=== PATIENT | female | born 1960 | race Caucasian/White ===

== ENCOUNTER 2017-02-09 06:52 | Emergency (ER) | payer BC, OTHER ==
[2017-02-09] MEDS ORDERED: OXYCODONE-ACETAMINOPHEN 5-325 MG TABLET ONE (12:13)
[2017-02-09] MEDS ORDERED: CEFTRIAXONE RTU 1 GM/D5W 50 ML IV ONE (12:13)
[2017-02-09] MEDS ORDERED: MORPHINE SULFATE 10 MG/ML INJ ONE (12:13)
[2017-02-10 09:19] LABS: ABSOLUTE BASOPHILS # (AUTO) 0.1 10^3/uL (0.0-0.2); ABSOLUTE EOSINOPHILS # (AUTO) 0.1 10^3/uL (0.0-0.6); ABSOLUTE LYMPHOCYTES (AUTO) 2.7 10^3/uL (0.5-4.7); ABSOLUTE MONOCYTES (AUTO) 0.9 10^3/uL (0.1-1.4); ABSOLUTE NEUT (AUTO) 5.4 10^3/uL (1.7-8.2); BASOPHILS % (AUTO) 0.7 % (0-2); EOSINOPHILS % (AUTO) 1.4 % (0-6); HEMATOCRIT 49.2 % (36.0-47.0); HEMOGLOBIN 15.9 g/dL (12.0-15.5); HGB HCT DIFFERENCE -1.5; LYMPHOCYTES % (AUTO) 29.6 % (13-45); MEAN CORPUSCULAR HEMOGLOBIN 27.5 pg (27.0-33.4); MEAN CORPUSCULAR HGB CONC 32.4 g/dL (32.0-36.0); MEAN CORPUSCULAR VOLUME 85 fl (80-97); MONOCYTES % (AUTO) 9.4 % (3-13); RED CELL DISTRIBUTION WIDTH 15.5 % (11.5-14.0); SEGMENTED NEUTROPHILS % (AUTO) 58.9 % (42-78); WHITE BLOOD COUNT 9.2 10^3/uL (4.0-10.5)
[2017-02-10 14:02] LABS: APPEARANCE,URINE CLOUDY; BILIRUBIN,URINE NEGATIVE (NEGATIVE); GLUCOSE, URINE NEGATIVE (NEGATIVE); KETONES,URINE NEGATIVE (NEGATIVE); LEUKOCYTE ESTERASE,URINE SMALL (NEGATIVE); NITRITE,URINE NEGATIVE (NEGATIVE); PROTEIN,URINE 30 mg/dL (NEGATIVE); URINE SPECIFIC GRAVITY 1.014; UROBILINOGEN,URINE NEGATIVE mg/dL (<2.0)
[2017-02-10 15:38] LABS: CALCIUM 11.7 mg/dL (8.4-10.2); GLUCOSE 107 mg/dL (75-110)
[2017-02-10 15:39] LABS: ANION GAP 14 (5-19); BLOOD UREA NITROGEN 20 mg/dL (7-20); CARBON DIOXIDE 25 mmol/L (22-30); CHLORIDE 104 mmol/L (98-107); POTASSIUM 4.2 mmol/L (3.6-5.0); SODIUM 143.2 mmol/L (137-145)
--- NOTE | 2017-05-02 11:18 | ER Document Report ---
Doctor's Note Notes: 05/02/17 11:17 Addendum to the clinical impression for the visit on 02/10/2017 dictated by myself. Right-sided kidney stone is the clinical impression.
== END 2017-02-09 15:48 | disposition home or self-care (01) ==
LOC: ER 06:52
DX: N13.2 Hydronephrosis with renal and ureteral calculous obstruction (principal); K46.9 Unspecified abdominal hernia without obstruction or gangrene; M62.830 Muscle spasm of back; I10 Essential (primary) hypertension; Z87.442 Personal history of urinary calculi; Z90.49 Acquired absence of other specified parts of digestive tract
CPT/HCPCS: 99284; 96375; 96365; 36415; 87086; 85025; 80048; 81001; 74150; J2270; J0696; 80053

== ENCOUNTER 2017-02-15 11:03 | Day surgery (SDC) | payer BC ==
[2017-02-15] MEDS ORDERED: CEFTRIAXONE 1 GM/D5W RTU 1 GM/50 ML RTUPB IV ONE (11:14)
[2017-02-15] MEDS ORDERED: PROMETHAZINE HCL INJ 25 MG/1 ML VIAL IV PRN ×2 (12:56)
[2017-02-15] MEDS ORDERED: FENTANYL CITRATE INJ/PF 100 MCG/2 ML AMPUL IV PRN ×3 (12:56)
[2017-02-15] MEDS ORDERED: MORPHINE SULFATE 10 MG/ML INJ IV PRN (12:56)
[2017-02-15] MEDS ORDERED: DIPHENHYDRAMINE HCL 50 MG/ML VIAL IV PRN (12:56)
[2017-02-15] MEDS ORDERED: MEPERIDINE HCL/PF INJ 25 MG/1 ML DISP.SYRIN IV PRN (12:56)
[2017-02-15] MEDS ORDERED: FENTANYL CITRATE INJ/PF 250 MCG/5 ML AMPULE ONE (13:11)
[2017-02-15] MEDS ORDERED: PROPOFOL INJ 200 MG/20 ML VIAL IV ONE (13:11)
[2017-02-15] MEDS ORDERED: ONDANSETRON HCL INJ/PF 4 MG/2 ML SDV ONE ×2 (13:11→16:44)
[2017-02-15] MEDS ORDERED: MIDAZOLAM 2 MG/2 ML INJ ONE (13:11)
[2017-02-15] MEDS ORDERED: DEXAMETHASONE SOD PHOSPHATE INJ 4 MG/1 ML VIAL ONE (13:11)
[2017-02-15] MEDS ORDERED: MORPHINE SULFATE 10 MG/ML INJ ONE (13:12)
[2017-02-15] MEDS ORDERED: IBUPROFEN INJ 800 MG/8 ML VIAL IV ONE (13:12)
[2017-02-15] MEDS ORDERED: SUCCINYLCHOLINE CHLORIDE INJ 200 MG/10 ML VIAL ONE (13:28)
--- NOTE | 2017-02-15 15:27 | Operative Report ---
Operative Report DATE OF SURGERY: 02/15/17 PREOPERATIVE DIAGNOSIS: Left ureteral stone, Right renal stones POSTOPERATIVE DIAGNOSIS: same OPERATION: cystoscopy, bilateral RGP's, left ureteroscopy with basket extraction of stone, right ureteroscopy with holmium laser lithotripsy and basket extraction of stones, bilateral ureteral stent placement SURGEON: JOSE HURLEY 1ST EMERGENCY DEPARTMENT: none ANESTHESIA: GA TISSUE REMOVED OR ALTERED: left ureteral stones for analysis, right renal stone fragments for analysis COMPLICATIONS: none
--- NOTE | 2017-02-15 15:43 | RADIOLOGY REPORT (SQ) ---
EXAM DESCRIPTION: PYELOGRAM RETROGRADE COMPLETED DATE/TIME: 02/15/2017 3:25 pm REASON FOR STUDY: BILAT PYELOGRAM RETROGRADE, LITHOTRIPSY IN CYSTO N20.0 CALCULUS OF KIDNEY COMPARISON: None. FLUOROSCOPY TIME: 1.16 minute 24 images saved to PACS. TECHNIQUE: Intra-operative images acquired during surgical procedure to evaluate progress. NUMBER OF IMAGES: 24 images LIMITATIONS: None. FINDINGS: Fluoroscopic images were obtained during performance of bilateral retrograde pyelograms. The final images demonstrate bilateral double-J stents in position. IMPRESSION: IMAGE(S) OBTAINED DURING PROCEDURE. COMMENT: Quality ID [id number]: Final reports for procedures using fluoroscopy that document radiation exp osure indices, or exposure time and number of fluorographic images (if radiation exposure indices are not available) Please consult full operative report of the attending physician for description of the procedure. TECHNICAL DOCUMENTATION: JOB ID: [id number] [employer]- All Rights Reserved
[2017-02-15] MEDS ORDERED: OXYCODONE-ACETAMINOPHEN 5-325 MG TABLET ONE (16:17)
[2017-02-15 17:46] VITALS: BP 166/104
--- NOTE | 2017-02-15 20:58 | OPERATIVE REPORT E ---
Operative Report NAME: TORIN DUVALL : 1960 AGE: 56Y DATE OF SURGERY: 02/15/2017 ROOM: PREOPERATIVE DIAGNOSIS: Left distal ureteral stone, right renal stones. POSTOPERATIVE DIAGNOSIS: Left distal ureteral stone, right renal stones. OPERATION: Cystourethroscopy, bilateral retrograde pyelogram, left ureteroscopy with basket extraction of stone fragments, right ureteroscopy with holmium laser lithotripsy and basket extraction of stone fragments, bilateral ureteral stent placement. SURGEON: JOSE HURLEY M.D. [employer] HE[employer] FITTER MACHINE: None. ANESTHESIA: General. COMPLICATIONS: None. SPECIMENS: Left ureteral stone fragments, right renal stone fragments. ESTIMATED BLOOD LOSS: Less than 5 mL. DRAINS: Left 7 x 26 double-J ureteral stent, right 6 x 26 double-J ureteral stent. INDICATIONS: The patient is a very pleasant 56-year-old female who recently presented with right flank pain. A CT scan showed a 1.4 cm stone in the right renal pelvis. There was mild associated hydronephrosis noted as well. There was a smaller nonobstructing stone noted within the right kidney as well. CT scan also showed an approximately 4 mm left distal ureteral stone without any significant hydronephrosis. I met with her in the clinic and we discussed the options for management of her stones. We decided to proceed with ureteroscopic management of her stone burden. We discussed the risks and benefits of the same. We discussed the risks of bleeding, infection, damage to structures in which we are working such as the urethra, the bladder, the bilateral ureters and bilateral kidneys, damage to adjacent structures, the possible need for multiple procedures to clear her stone burden, and the possible need for subsequent treatments or procedures based on the above-noted complications. The patient acknowledged the above and wished to proceed. Informed consent was obtained. PROCEDURE: After informed consent was obtained, the patient was taken back to the operating room and placed in supine position on the operating room table. General anesthesia was then induced. She was then repositioned in the dorsal lithotomy position, and prepped and draped in standard sterile fashion. Perioperative antibiotics were administered for prophylaxis, and an active timeout was performed. Next, a 23 [place] rigid cystoscope was inserted via the urethral meatus and advanced under direct visualization into the bladder. Once in the bladder, panendoscopy of the bladder was performed with a 70 degree and then 30 degree lens. The urethral mucosa was unremarkable. Within the bladder, there are no suspicious lesions, masses, or foreign bodies identified. I next turned my attention to the left ureteral orifice. The left ureteral orifice was cannulated with a sensor wire, which was advanced into the upper collecting tract under fluoroscopic guidance. The bladder was then emptied and the cystoscope was removed from over the wire. Over the wire, a 10 [place]arian dual lumen catheter was advanced into the distal ureter under fluoroscopic guidance. Mild resistance was met within the distal ureter and further attempts at advancement were halted. A left retrograde pyelogram was then performed. Interpretation of left retrograde pyelogram: With the catheter in the left distal ureter, contrast was gently instilled. The ureter filled well, as did the upper collecting tract. The ureter was at a normal caliber without any suspicious filling defects. The upper collecting tract was also found to be nondilated without any suspicious filling defects noted. After the left retrograde pyelogram was complete, a 2nd sensor wire was placed through the dual lumen catheter into the upper collecting tract under fluoroscopic guidance and the dual lumen catheter was removed from over the wires. Next, a semi-rigid ureteroscope was inserted via the urethral meatus and advanced under direct visualization into the bladder and up the left ureteral orifice. Within the left distal ureter, there were approximately 3 stone fragments which appeared to be mildly impacted noted. A 1.90 tip nitinol basket was used to extract these stone fragments. The fragments were passed off to the back table to be sent to Pathology for specimen analysis. After all the stone fragments were extracted, the ureteroscope was readvanced into the bladder and through the left ureteral orifice under direct visualization. I advanced the scope under direct visualization up into the left renal pelvis. No other stones were identified. The scope was then retracted under direct visualization, inspecting the ureter along its entirety. Again, no stones or suspicious lesions were noted. After the semi-rigid ureteroscope was removed, so was one of the sensor wires. Over the remaining sensor wire, the cystoscope was back loaded and advanced under direct visualization into the bladder. Over the wire, a 7 x 26 left double-J ureteral stent was advanced under cystoscopic visualization and fluoroscopic guidance. Once the stent was in good position, the wire was removed. A good curl was noted within the upper collecting tract on fluoroscopy. A good curl was noted within the bladder on cystoscopy. I then turned my attention to the right ureteral orifice, which was cannulated with a sensor wire. The sensor wire was then advanced into the upper collecting tract under fluoroscopic guidance. The bladder was emptied and the cystoscope was removed from over the wire. Over the wire, a 10 [place] dual lumen catheter was advanced under fluoroscopic guidance to the level of the right ureteropelvic junction. A right retrograde pyelogram was then performed. Interpretation of right retrograde pyelogram: With a catheter at the level of the right ureteropelvic junction, contrast was gently instilled. There was a subtle filling defect noted within the renal pelvis which was consistent with the stone noted on her CT scan. The upper tract calyces were mildly dilated. There were no suspicious filling defects identified. After the retrograde pyelogram was complete, a 2nd sensor wire was placed through the dual lumen catheter into the upper collecting tract under fluoroscopic guidance, and the dual lumen catheter was removed from over the wires. Over one of the wires, a 35 cm ureteral access sheath was advanced under fluoroscopic guidance to the level of the right upper ureter, just distal to the ureteropelvic junction. The wire over which it was passed and the obturator were then removed. Through the ureteral access sheath, a flexible ureteroscope was passed under direct visualization into the renal pelvis. A large stone was immediately identified within the renal pelvis. I inspected the calyces of the upper mid and lower poles. Within one of the other upper pole calyces, a moderate sized stone was identified. There was a tiny stone noted within one of the lower pole calyces. The holmium laser, on stone dusting settings, was used to fragment the large renal pelvis stone into multiple innumerable tiny pieces. A large portion of the stone was dusted as well. After all the fragments were broken down as small as possible, I turned my attention to the moderate sized stone within the upper pole calyx. Again, using the stone dusting settings, I fragmented the stone into as many smaller pieces as possible. Once it was fragmented into as many small pieces as possible, the laser was placed on standby and removed from the ureteroscope. The 0 tip nitinol basket was used to extract the smaller lower pole stone. There were a few stone fragments within the renal pelvis. These were also extracted. The lower pole stone and the stone fragments were collected and passed off to the back table to be sent to Pathology for analysis. At this point, visualization was becoming limited. I felt it prudent to terminate the procedure. The ureteroscope and ureteral access sheath were retracted in tandem, inspecting the right ureter along its entirety. There were no stones noted within the ureter. Of note, there were no suspicious lesions of the upper collecting tract of the right upper collecting tract or right ureter noted, either. Once the ureteroscope and ureteral access sheath were removed, over the remaining wire the cystoscope was back loaded and advanced under direct visualization into the bladder. Over the wire, a right 6 x 26 double-J ureteral stent was advanced under cystoscopic visualization and fluoroscopic guidance. Once the stent was in good position, the wire was removed. There was a good curl noted in the upper collecting tract on fluoroscopy. There was a good curl noted within the bladder on cystoscopy. The bladder was emptied and the cystoscope was removed. The patient tolerated the procedure well. There were no immediate complications. She was awakened from general anesthesia and taken to the recovery room in stable condition. Given the mild impaction of the stone within the left distal ureter, I will plan to leave it for approximately 2 weeks. To aid in passage of the stone fragments within the right collecting system, I will also leave her right ureteral stent for approximately 2 weeks. She will receive a short course of periprocedural antibiotic. I will have her follow up with me in approximately 2 weeks with a KUB prior. DICTATING PHYSICIAN: JOSE HURLEY M.D. [id number] PHY#: [id number] ID: [id number] JOB#: [id number] ACCT: [id number] cc:JOSE HURLEY M.D. > MTDD
[2017-02-24 10:38] LABS: CALCIUM OXALATE DIHYDRATE 30 % (.); CALCIUM OXALATE MONOHYDRATE 60 % (.); COLOR Brown (.)
[2017-02-24 10:38] LABS: CALCIUM OXALATE DIHYDRATE 40 % (.); CALCIUM OXALATE MONOHYDRATE 55 % (.); COLOR Tan (.)
== END 2017-02-15 17:35 | disposition home or self-care (01) ==
LOC: OROUT 11:03
PROVIDERS: ATTEND Urology
PROC: 0TF38ZZ Fragmentation in Right Kidney Pelvis, Via Natural or Artificial Opening Endoscopic (ICD-10-PCS; 2017-02-15)
PROC: 0T768DZ Dilation of Right Ureter with Intraluminal Device, Via Natural or Artificial Opening Endoscopic (ICD-10-PCS; 2017-02-15)
PROC: 0T778DZ Dilation of Left Ureter with Intraluminal Device, Via Natural or Artificial Opening Endoscopic (ICD-10-PCS; 2017-02-15)
PROC: 0TF78ZZ Fragmentation in Left Ureter, Via Natural or Artificial Opening Endoscopic (ICD-10-PCS; principal; 2017-02-15 13:00)
DX: N13.2 Hydronephrosis with renal and ureteral calculous obstruction (principal); I10 Essential (primary) hypertension; E78.00 Pure hypercholesterolemia, unspecified; K21.9 Gastro-esophageal reflux disease without esophagitis; Z79.899 Other long term (current) drug therapy; Z88.2 Allergy status to sulfonamides; N23 Unspecified renal colic; Z87.440 Personal history of urinary (tract) infections; Z87.442 Personal history of urinary calculi
CPT/HCPCS: 82370; 74420; 52356; C1769; C2625; C1758; C2617; Q9967; J2250; J1100; J3010; J2270; J0330; J2405; J2704; J0696; J1741; 918

== ENCOUNTER → 2017-02-28 | Outpatient (CLI) | payer BC ==
--- NOTE | 2017-02-28 08:44 | RADIOLOGY REPORT (SQ) ---
EXAM DESCRIPTION: KUB COMPLETED DATE/TIME: 02/28/2017 8:35 am REASON FOR STUDY: CALCULUS OF KIDNEY N20.0 CALCULUS OF KIDNEY COMPARISON: None. NUMBER OF VIEWS: One view. TECHNIQUE: Supine radiographic image of the abdomen acquired. LIMITATIONS: None. FINDINGS: BOWEL GAS PATTERN: Normal bowel gas pattern. No dilated loops. CALCIFICATIONS: There are numerous right-sided renal stones. There is an approximately 7 mm stone in the lower pole the left kidney. Double-J ureteral stents are in place. There are numerous phleboli ths in the pelvis. SOFT TISSUES: No gross mass or suggestion of organomegaly. HARDWARE: There are clips in the right upper quadrant and just lateral to the lower pole the right ki dney. BONES: No acute fracture. No worrisome bone lesions. OTHER: No other significant finding. IMPRESSION: Numerous bilateral renal calculi. Double-J ureteral stents are in place. TECHNICAL DOCUMENTATION: JOB ID: [id number] [employer]- All Rights Reserved
== END ==
LOC: OD 08:26
PROVIDERS: ATTEND Urology
DX: N20.0 Calculus of kidney (principal)
CPT/HCPCS: 74000

== ENCOUNTER 2017-04-15 17:58 | Emergency (ER) | payer BC ==
--- NOTE | 2017-04-15 18:13 | ER Document Report ---
ED Medical Screen (RME) - General Mode of Arrival: Ambulatory Information source: Patient TRAVEL OUTSIDE OF THE [place] IN LAST 30 DAYS: No <ROSA BRADLEY - Last Filed: 04/15/17 18:08> <IRWIN LEE - Last Filed: 04/15/17 21:12> - General Chief Complaint: Abdominal Pain Stated Complaint: LOWER ABDONEN PAIN/LEFT SIDE Time Seen by Provider: 04/15/17 18:06 Notes: Patient is a 56 year old female presenting to the emergency department for left sided abdominal pain. Patient states the pain woke her up this morning around 2: 30. Patient states she is going through menopause. Patient also has a history of kidney stones and states the pain is not similar to her previous kidney stones. Patient believes that the pain is caused from her ovary. Patient also complains of some diarrhea and some nausea. Patient denies any vomiting. (ROSA BRADLEY) - Related Data Allergies/Adverse Reactions: sulfamethoxazole [From ] Allergy (Verified 04/15/17 18:02) Hives trimethoprim [From ] Allergy (Verified 04/15/17 18:02) Hives Past Medical History - Past Medical History Cardiac Medical History: Reports: Hx Hypertension Denies: Hx Coronary Artery Disease, Hx Heart Attack Pulmonary Medical History: Denies: Hx Asthma, Hx Bronchitis, Hx COPD, Hx Pneumonia Neurological Medical History: Denies: Hx Cerebrovascular Accident, Hx Seizures Renal/ Medical History: Reports: Hx Kidney Stones. Denies: Hx Peritoneal Dialysis GI Medical History: Reports: Hx Gastroesophageal Reflux Disease Musculoskeltal Medical History: Reports Hx Arthritis - Possible arthritis in knees Past Surgical History: Reports: Hx Appendectomy, Hx Breast Surgery - Lump removed, Hx Cholecystectomy, Hx Oral Surgery - [place] teeth removed, Hx Orthopedic Surgery - Knee surgery, Hx Tubal Ligation - Immunizations Hx Diphtheria, Pertussis, Tetanus Vaccination: Yes - Tetanus, unsure when <ROSA BARDLEY - Last Filed: 04/15/17 18:08> Physical Exam <ROSA BRADLEY - Last Filed: 04/15/17 18:08> <IRWIN LEE - Last Filed: 04/15/17 21:12> - Vital signs Vitals: Temp Pulse Resp BP Pulse Ox 98.2 F 83 18 151/88 H 99 04/15/17 18:02 04/15/17 18:02 04/15/17 18:02 04/15/17 18:02 04/15/17 18:02 - Notes Notes: GENERAL: Alert, interacts well. Mild distress. LUNGS: Clear to auscultation bilaterally, no wheezes, rales, or rhonchi. No respiratory distress. HEART: Regular rate and rhythm. No murmurs, gallops, or rubs. ABDOMEN: Soft, left lower quadrant tenderness to palpation. Non-distended. Bowel sounds present in all 4 quadrants. (ROSA BRADLEY) Course <ROSA BRADLEY - Last Filed: 04/15/17 18:08> - Laboratory Result Diagrams: 04/15/17 18:27 04/15/17 18:27 <IRWIN LEE - Last Filed: 04/15/17 21:12> - Re-evaluation Re-evalutation: 04/15/17 18:49 Cardiac workup entered in error on this patient, patient was already given aspirin, nitroglycerin has been canceled. Patient has had urinalysis ordered, patient;s left lower quadrant abdominal pain could be coming from diverticulitis or a kidney stone. CAT scan will be decided based off of urinalysis results. (IRWIN LEE) - Vital Signs Vital signs: Temp Pulse Resp BP Pulse Ox 98.5 F 75 20 131/77 H 95 04/15/17 20:29 04/15/17 20:29 04/15/17 20:29 04/15/17 20:29 04/15/17 20:29 - Laboratory Laboratory results interpreted by me: 04/15/17 04/15/17 04/15/17 18:27 18:27 19:33 WBC 10.6 H RDW 15.4 H Est GFR (Non-Af Amer) 59 L Glucose 125 H Calcium 11.1 H Alkaline Phosphatase 138 H Urine Blood SMALL H Scribe Documentation - Scribe Written by Richard:: Richard Richards 04/15/17 18:13 acting as scribe for :: Stephanie <ROSA BRADLEY - Last Filed: 04/15/17 18:08>
[2017-04-15] MEDS ORDERED: NITROGLYCERIN 0.4 MG/TAB 25 TAB/BOTTLE SL PRN (18:21)
[2017-04-15] MEDS ORDERED: ASPIRIN 81 MG TABLET, CHEWABLE PO ONE (18:21)
[2017-04-15 18:47] LABS: ABSOLUTE BASOPHILS # (AUTO) 0.1 10^3/uL (0.0-0.2); ABSOLUTE EOSINOPHILS # (AUTO) 0.2 10^3/uL (0.0-0.6); ABSOLUTE NEUT (AUTO) 7.3 10^3/uL (1.7-8.2); BASOPHILS % (AUTO) 0.7 % (0-2); EOSINOPHILS % (AUTO) 2.2 % (0-6); HEMATOCRIT 43.6 % (36.0-47.0); HEMOGLOBIN 14.7 g/dL (12.0-15.5); HGB HCT DIFFERENCE 0.5; LYMPHOCYTES % (AUTO) 18.9 % (13-45); MEAN CORPUSCULAR HEMOGLOBIN 27.9 pg (27.0-33.4); MEAN CORPUSCULAR HGB CONC 33.7 g/dL (32.0-36.0); MEAN CORPUSCULAR VOLUME 83 fl (80-97); MONOCYTES % (AUTO) 9.3 % (3-13); RED BLOOD COUNT 5.26 10^6/uL (3.72-5.28); RED CELL DISTRIBUTION WIDTH 15.4 % (11.5-14.0); SEGMENTED NEUTROPHILS % (AUTO) 68.9 % (42-78); WHITE BLOOD COUNT 10.6 10^3/uL (4.0-10.5)
[2017-04-15 18:54] LABS: PROTHROMBIN TIME 12.9 SEC (11.4-15.4)
[2017-04-15 19:02] LABS: ALANINE AMINOTRANSFERASE 44 U/L (9-52); ALBUMIN 4.3 g/dL (3.5-5.0); ALKALINE PHOSPHATASE 138 U/L (38-126); ANION GAP 14 (5-19); ASPARTATE AMINO TRANSFERASE 25 U/L (14-36); BILIRUBIN,DIRECT 0.4 mg/dL (0.0-0.4); BILIRUBIN,TOTAL 0.8 mg/dL (0.2-1.3); BLOOD UREA NITROGEN 19 mg/dL (7-20); CALCIUM 11.1 mg/dL (8.4-10.2); CARBON DIOXIDE 26 mmol/L (22-30); CHLORIDE 102 mmol/L (98-107); CREATINE KINASE 86 U/L (30-135); CREATININE RESULT 0.97 mg/dL (0.52-1.25); GLUCOSE 125 mg/dL (75-110); POTASSIUM 3.7 mmol/L (3.6-5.0); TOTAL PROTEIN 7.9 g/dL (6.3-8.2)
[2017-04-15 19:13] LABS: CREATINE KINASE MB 0.45 ng/mL (<4.55)
[2017-04-15 19:25] LABS: TROPONIN I < 0.012 ng/mL
[2017-04-15] MEDS ORDERED: HYDROMORPHONE HCL INJ/PF 2 MG/ML AMPULE IV ONE (19:46)
[2017-04-15] MEDS ORDERED: NORMAL SALINE 1000 ML 500 ML IV ONE (19:46)
[2017-04-15 19:57] LABS: APPEARANCE,URINE SLIGHTLY-CLOUDY; BILIRUBIN,URINE NEGATIVE (NEGATIVE); GLUCOSE, URINE NEGATIVE (NEGATIVE); KETONES,URINE NEGATIVE (NEGATIVE); LEUKOCYTE ESTERASE,URINE NEGATIVE (NEGATIVE); NITRITE,URINE NEGATIVE (NEGATIVE); PROTEIN,URINE NEGATIVE (NEGATIVE); UROBILINOGEN,URINE NEGATIVE mg/dL (<2.0)
[2017-04-15] MEDS ORDERED: NORMAL SALINE 1000 ML 1,000 ML IV PRN (20:41)
[2017-04-15] MEDS ORDERED: ONDANSETRON HCL INJ/PF 4 MG/2 ML SDV IV ONE (20:42)
--- NOTE | 2017-04-15 20:49 | ER Document Report ---
ED GI/ - General Chief Complaint: Abdominal Pain Stated Complaint: LOWER ABDONEN PAIN/LEFT SIDE Time Seen by Provider: 04/15/17 18:06 Mode of Arrival: Ambulatory Information source: Patient Notes: 56-year-old female presents to ED with left lower quadrant abdominal pain. She states the pain woke her up this morning. He states she has had some nausea and diarrhea but no vomiting. She states she has a history of kidney stones but this does not feel anything like her kidney stones in the past. She does have a history of having a appendectomy and a cholecystectomy and kidney stone. TRAVEL OUTSIDE OF THE [place] IN LAST 30 DAYS: No - HPI Patient complains to provider of: Abdominal pain, Diarrhea Onset: This morning Timing/Duration: Sudden Quality of pain: Sharp, Stabbing Severity at maximum: Severe Severity in ED: Moderate Pain Level: 3 Location: LLQ Vaginal bleeding (Compared to normal period): None Associated symptoms: Diarrhea, Nausea. denies: Vomiting Exacerbated by: Movement, Walking Relieved by: Denies Similar symptoms previously: No Recently seen / treated by doctor: No - Related Data Allergies/Adverse Reactions: sulfamethoxazole [From Septra] Allergy (Verified 04/15/17 18:02) Hives trimethoprim [From Septra] Allergy (Verified 04/15/17 18:02) Hives Past Medical History - General Information source: Patient - Social History Smoking Status: Never Smoker Chew tobacco use (# tins/day): No Frequency of alcohol use: None Drug Abuse: None Family History: Arthritis, DM, Hypertension, Malignancy. denies: CAD, COPD, CVA , Hyperlipidemia, Thyroid Disfunction - Past Medical History Cardiac Medical History: Reports: Hx Hypercholesterolemia, Hx Hypertension Pulmonary Medical History: Reports: None EENT Medical History: Reports: None Neurological Medical History: Reports: None Endocrine Medical History: Reports: None Renal/ Medical History: Reports: Hx Kidney Stones Malignancy Medical History: Reports: None GI Medical History: Reports: Hx Gastroesophageal Reflux Disease. Denies: Hx Colonoscopy, Hx Endoscopy Musculoskeltal Medical History: Reports Hx Arthritis - Possible arthritis in knees , Reports Hx Musculoskeletal Deformity, Reports Hx Musculoskeletal Trauma Skin Medical History: Reports None Psychiatric Medical History: Reports: None Traumatic Medical History: Reports: None Infectious Medical History: Reports: None Past Surgical History: Reports: Hx Appendectomy, Hx Breast Surgery - Lump removed, Hx Cholecystectomy, Hx Oral Surgery - [place] teeth removed, Hx Orthopedic Surgery - Knee surgery, Hx Tubal Ligation - Immunizations Hx Diphtheria, Pertussis, Tetanus Vaccination: Yes - Tetanus, unsure when Review of Systems - Review of Systems Constitutional: Recent illness EENT: No symptoms reported Cardiovascular: No symptoms reported Respiratory: No symptoms reported Gastrointestinal: Abdominal pain, Diarrhea, Nausea. denies: Vomiting Genitourinary: No symptoms reported Female Genitourinary: No symptoms reported Musculoskeletal: No symptoms reported Skin: No symptoms reported Hematologic/Lymphatic: No symptoms reported Neurological/Psychological: No symptoms reported -: Yes All other systems reviewed and negative Physical Exam - Vital signs Vitals: Temp Pulse Resp BP Pulse Ox 98.2 F 83 18 151/88 H 99 04/15/17 18:02 04/15/17 18:02 04/15/17 18:02 04/15/17 18:02 04/15/17 18:02 Interpretation: Normal - General General appearance: Appears well, Alert - HEENT Head: Normocephalic, Atraumatic Eyes: Normal Pupils: PERRL - Respiratory Respiratory status: No respiratory distress Chest status: Nontender Breath sounds: Normal Chest palpation: Normal - Cardiovascular Rhythm: Regular Heart sounds: Normal auscultation Murmur: No - Abdominal Inspection: Normal Distension: No distension Bowel sounds: Normal Tenderness: Tender - llq, Guarding Organomegaly: No organomegaly - Back Back: Normal, Nontender - Extremities General upper extremity: Normal inspection, Nontender, Normal color, Normal ROM , Normal temperature General lower extremity: Normal inspection, Nontender, Normal color, Normal ROM , Normal temperature, Normal weight bearing. No: Glenis's sign - Neurological Neuro grossly intact: Yes Cognition: Normal Orientation: AAOx4 Shaka Coma Scale Eye Opening: Spontaneous Shaka Coma Scale Verbal: Oriented Shaka Coma Scale Motor: Obeys Commands Shaka Coma Scale Total: 15 Speech: Normal Motor strength normal: LUE, RUE, LLE, RLE Sensory: Normal - Psychological Associated symptoms: Normal affect, Normal mood - Skin Skin Temperature: Warm Skin Moisture: Dry Skin Color: Normal Course - Re-evaluation Re-evalutation: 04/16/17 07:51 PT and lab results reviewed with patient patient started on Cipro and Flagyl. Patient discharged home with prescription for nausea medicine and instructions to follow-up with her primary doctor. Patient also instructed on the need for a colonoscopy. - Vital Signs Vital signs: Temp Pulse Resp BP Pulse Ox 98.5 F 72 18 148/83 H 97 04/16/17 00:51 04/16/17 00:51 04/16/17 00:51 04/16/17 00:51 04/16/17 00:51 - Laboratory Result Diagrams: 04/15/17 18:27 04/15/17 18:27 Laboratory results interpreted by me: 04/15/17 04/15/17 04/15/17 18:27 18:27 19:33 WBC 10.6 H RDW 15.4 H Est GFR (Non-Af Amer) 59 L Glucose 125 H Calcium 11.1 H Alkaline Phosphatase 138 H Urine Blood SMALL H - Diagnostic Test Radiology reviewed: Image reviewed, Reports reviewed Discharge - Discharge Clinical Impression: Diverticulitis large intestine Qualifiers: Diverticulitis bleeding: without bleeding Diverticulitis complication: without perforation or abscess Qualified Code(s): K57.32 - Diverticulitis of large intestine without perforation or abscess without bleeding Condition: Stable Disposition: HOME, SELF-CARE Additional Instructions: Diverticulitis You have been diagnosed as having diverticulitis. This is an inflammation of a small pouch attached to the colon, called a diverticulum. Many of these small pouches can form on the colon as you get older. They are often caused by constipation. When inflamed or infected, symptoms arise -- usually abdominal pain, constipation or diarrhea, fever, and blood in the stool. Severe diverticulitis may require hospitalization. More mild cases are usually treated with antibiotics and clear liquid diet. As you improve, a diet low in residue (one which forms little stool) is prescribed. When you are better, you should eat a high-fiber diet. Stool softeners ( like Metamucil) are usually recommended. Call the doctor or go to the hospital if there is increasing pain, vomiting , high fever, large amounts of blood passed, or if bowel movements cease. Ciprofloxacin You have been given an antibacterial agent, ciprofloxacin (Cipro). This medicine is not related to the penicillins, sulfas, cephalosporins, or tetracyclines. It is often given to patients who are allergic to these drugs. It has been chosen for you either because other drugs are not appropriate, or because of the nature of your problem. Cipro should not be taken with antacids, as these can decrease its effectiveness. It can be taken without regard to meals. CIPRO SHOULD NOT BE TAKEN BY CHILDREN, NURSING WOMEN, OR WOMEN. Although Cipro is usually well-tolerated, common side effects can include nausea and diarrhea. Contact your doctor if you experience any unusual symptoms while on this medication, such as joint pain or swelling, shortness of breath, wheezing, faintness, or hives. Metronidazole Metronidazole (Flagyl) has been prescribed. This medication is used to kill a type of bacteria called anaerobes, and protozoan parasites such as trichomonas and Giardia. Flagyl often causes a metallic taste in the mouth and mild nausea. Do not use alcohol in any form with Flagyl (including alcohol in medication elixirs). Flagyl interacts with alcohol to cause flushing, palpitations, headache, stomach cramps, and vomiting. Do not use Flagyl if you are taking Antabuse (disulfiram). Call the doctor at once if you develop rash, shortness of breath, itching, or lightheadedness. Antinausea Medication You have been given a medication to suppress nausea and vomiting. This type of medication can be given as a shot, pill, or suppository. It will usually last for many hours. Pills and shots usually last six to eight hours, suppositories last about 12 hours. For the typical illness, only one or two doses of the medication may be necessary. Mild lightheadedness may occur. This type of medicine can cause drowsiness. Do not drive or operate dangerous machinery while under its influence. Do not mix with alcohol. See your doctor at once if you have muscle spasms or tightness, or uncontrollable motions (particularly of the neck, mouth, or jaw). Persistent vomiting or severe lightheadedness should also be evaluated by the physician. Ibuprofen Ibuprofen is an excellent, safe drug for pain control. In addition, it has potent antiinflammatory effects which are beneficial, especially in the treatment of injuries, arthritis, or tendonitis. It's best to take ibuprofen with food. Persons with ulcer disease or allergy to aspirin should notify their physician of this before taking ibuprofen. Take the medication exactly as prescribed. Don't take additional doses unless instructed to do so by your doctor. If you develop wheezing, shortness of breath, hives, faintness, stomach pain, vomiting, or dark black stools, return for re-evaluation at once. FOLLOW-UP CARE: If you have been referred to a physician for follow-up care, call the physician s office for an appointment as you were instructed or within the next two days. If you experience worsening or a significant change in your symptoms, notify the physician immediately or return to the Emergency Department at any time for re-evaluation. Prescriptions: Ciprofloxacin HCl [Cipro 500 mg Tablet] 500 mg PO BID #20 tablet Metronidazole [Flagyl 500 mg Tablet] 500 mg PO BID #20 tablet Promethazine HCl [Phenergan 25 mg Tablet] 25 mg PO Q6H PRN #15 tablet PRN Reason: Forms: Elevated Blood Pressure, Return to Work Referrals: BEN MARR MD [Primary Care Provider] - Follow up as needed
--- NOTE | 2017-04-16 00:05 | RADIOLOGY REPORT (SQ) ---
EXAM DESCRIPTION: CT ABDOMEN WITH IV ORAL CONT COMPLETED DATE/TIME: 04/15/2017 11:49 pm REASON FOR STUDY: left lower quadrant tenderness COMPARISON: 02/09/2017. TECHNIQUE: CT scan of the abdomen and pelvis performed with intravenous and oral contrast using ximena lenny scanning technique with dynamic intravenous contrast injection. Images reviewed with lung, soft t issue, and bone windows. Reconstructed coronal and sagittal MPR images reviewed. Delayed images for e valuation of the urinary system also acquired. All images stored on PACS. All CT scanners at this facility use dose modulation, iterative reconstruction, and/or weight based d osing when appropriate to reduce radiation dose to as low as reasonably achievable (ALARA). [facility]: Dose Right [facility]: CareDose [facility]: Dose Right [facility]: Teradose 4D [facility]: Rolocule Games CONTRAST TYPE AND DOSE: contrast/concentration: Isovue 370.00 mg/ml; Total Contrast Delivered: 100.0 ml; Total Saline Delivered: 72.0 ml RENAL FUNCTION: BUN 19 creatinine 0.97. RADIATION DOSE: Up-to-date CT equipment and radiation dose reduction techniques were employed. CTDIv ol: 20.3 - 20.9 mGy. DLP: 2304 mGy-cm.. LIMITATIONS: None. FINDINGS: LOWER CHEST: No significant findings. No nodules or infiltrates. LIVER: Normal size. No masses. No dilated ducts. SPLEEN: Normal size. No focal lesions. PANCREAS: No masses. No significant calcifications. No adjacent inflammation or peripancreatic fluid collections. Pancreatic duct not dilated. GALLBLADDER: Surgically absent. ADRENAL GLANDS: No significant masses or asymmetry. RIGHT KIDNEY AND URETER: No solid masses. Tiny lower pole calculus. No hydronephrosis or hydroureter . LEFT KIDNEY AND URETER: No solid masses. 6 mm lower pole calculus. No hydronephrosis or hydroureter. AORTA AND VESSELS: No aneurysm. No dissection. Renal arteries, SMA, celiac without stenosis. RETROPERITONEUM: No retroperitoneal adenopathy, hemorrhage or masses. BOWEL AND PERITONEAL CAVITY: No obstruction. No visualized masses. No free fluid. A few colonic dive rticuli. Mild focal inflammation adjacent to the descending colon in the left lower quadrant. No fl uid collection or extraluminal gas APPENDIX: Surgically absent. PELVIS: No significant masses. Normal bladder. No free fluid. ABDOMINAL WALL: No masses. Umbilical hernia containing fat. BONES: No significant or acute findings. OTHER: No other significant finding. IMPRESSION: 1. MILD FOCAL DIVERTICULITIS IN THE LEFT LOWER QUADRANT. NO EVIDENCE OF ABSCESS OR PERFORATION. 2. NONOBSTRUCTING CALYCEAL CALCULI IN BOTH KIDNEYS. 3. UMBILICAL HERNIA CONTAINING FAT. NO INVOLVEMENT OF BOWEL. 4. NO OTHER SIGNIFICANT OR ACUTE FINDINGS IN THE ABDOMEN OR PELVIS. TECHNICAL DOCUMENTATION: JOB ID: [id number] Quality ID # [id number]: Final reports with documentation of one or more dose reduction techniques (e.g., Au tomated exposure control, adjustment of the mA and/or kV according to patient size, use of iterative reconstruction technique) 2010 [employer]- All Rights Reserved
[2017-04-16] MEDS ORDERED: METRONIDAZOLE 500 MG TABLET PO ONE (00:42)
[2017-04-16] MEDS ORDERED: CIPROFLOXACIN HCL 500 MG TABLET PO ONE (00:42)
[2017-04-16 01:01] VITALS: BP 148/83
--- NOTE | 2017-04-17 13:11 | EKG REPORT ---
SEVERITY:- ABNORMAL ECG - SINUS RHYTHM BORDERLINE INFERIOR Q WAVES NONSPECIFIC T ABNORMALITIES, INFERIOR LEADS : Confirmed by: Renee Olmos MD 17-Apr-2017 13:10:13
== END 2017-04-16 01:05 | disposition home or self-care (01) ==
LOC: ER 17:58
DX: K57.32 Diverticulitis of large intestine without perforation or abscess without bleeding (principal); R10.32 Left lower quadrant pain; R11.0 Nausea; E78.00 Pure hypercholesterolemia, unspecified; I10 Essential (primary) hypertension; Z90.49 Acquired absence of other specified parts of digestive tract; Z98.51 Tubal ligation status; Z87.442 Personal history of urinary calculi
CPT/HCPCS: 93005; 99284; 96361; 96374; 96375; 36415; 82553; 82550; 85025; 85610; 80053; 81001; 84484; 74160; 93010; J1170; J2405; J7030

== ENCOUNTER 2018-02-06 18:37 | Emergency (ER) | payer BC, MEDICAID ==
[2018-02-06 19:06] VITALS: BP 144/82
--- NOTE | 2018-02-06 19:19 | ER Document Report ---
ED Respiratory Problem - General Chief Complaint: Congestion Stated Complaint: COUGH Time Seen by Provider: 02/06/18 19:07 Mode of Arrival: Ambulatory Information source: Patient Notes: 57-year-old female presented ED for complaint of cough congestion and sore throat since . She is denies any fever. She states she has a history of high blood pressure and is been out of her blood pressure medicine for about a week and a half. She states she also has a history of reflux and arthritis. States she cannot go to her doctor to get a refill on her blood pressure medicine at this time because she does not have fee to see the doctor TRAVEL OUTSIDE OF THE [place] IN LAST 30 DAYS: No - HPI Patient complains to provider of: Cough Onset: Last week Duration: Continuous Initiating Event: URI Quality of pain: Achy, Other - Sore throat Severity: Moderate Pain Level: 3 Context: denies: Smoker Sputum amount: Small Sputum color: Yellow Sputum consistency: Thick Associated symptoms: Congestion, Cough, PND, Runny nose, Sinus pain/pressure. denies: Fever Similar symptoms previously: Yes Recently seen / treated by doctor: No - Related Data Allergies/Adverse Reactions: sulfamethoxazole [From Septra] Allergy (Verified 02/06/18 19:05) Hives trimethoprim [From Septra] Allergy (Verified 02/06/18 19:05) Hives Past Medical History - General Information source: Patient - Social History Smoking Status: Never Smoker Cigarette use (# per day): No Chew tobacco use (# tins/day): No Smoking Education Provided: No Frequency of alcohol use: None Drug Abuse: None Lives with: Alone Family History: Arthritis, DM, Hypertension, Malignancy. denies: CAD, COPD, CVA , Hyperlipidemia, Thyroid Disfunction Patient has suicidal ideation: No Patient has homicidal ideation: No - Past Medical History Cardiac Medical History: Reports: Hx Hypercholesterolemia, Hx Hypertension Pulmonary Medical History: Reports: None EENT Medical History: Reports: None Neurological Medical History: Reports: None Endocrine Medical History: Reports: None Renal/ Medical History: Reports: Hx Kidney Stones Malignancy Medical History: Reports: None GI Medical History: Reports: Hx Gastroesophageal Reflux Disease Musculoskeltal Medical History: Reports Hx Arthritis - Possible arthritis in knees , Reports Hx Musculoskeletal Deformity, Reports Hx Musculoskeletal Trauma Skin Medical History: Reports None Psychiatric Medical History: Reports: None Traumatic Medical History: Reports: None Infectious Medical History: Reports: None Past Surgical History: Reports: Hx Appendectomy, Hx Breast Surgery - Lump removed, Hx Cholecystectomy, Hx Oral Surgery - [place] teeth removed, Hx Orthopedic Surgery - Knee surgery, Hx Tubal Ligation - Immunizations Hx Diphtheria, Pertussis, Tetanus Vaccination: Yes - Tetanus, unsure when Review of Systems - Review of Systems Constitutional: Recent illness EENT: Nose discharge, Sinus discharge, Throat pain Cardiovascular: No symptoms reported Respiratory: Cough Gastrointestinal: No symptoms reported Genitourinary: No symptoms reported Female Genitourinary: No symptoms reported Musculoskeletal: No symptoms reported Skin: No symptoms reported Hematologic/Lymphatic: No symptoms reported Neurological/Psychological: No symptoms reported -: Yes All other systems reviewed and negative Physical Exam - Vital signs Vitals: Temp Pulse Resp BP Pulse Ox 98.6 F 78 14 144/82 H 98 02/06/18 19:04 02/06/18 19:04 02/06/18 19:04 02/06/18 19:04 02/06/18 19:04 Interpretation: Normal - General General appearance: Appears well, Alert - HEENT Head: Normocephalic, Atraumatic Eyes: Normal Pupils: PERRL Ears: Normal External canal: Normal Tympanic membrane: Normal Sinus: Normal Nasal: Purulent discharge, Swelling Pharynx: Post nasal drainage. No: Erythema, Exudate, Tonsillar hypertrophy Neck: Normal. No: Anterior cervical chain - Respiratory Respiratory status: No respiratory distress Chest status: Pain with cough Breath sounds: Normal Chest palpation: Normal - Cardiovascular Rhythm: Regular Heart sounds: Normal auscultation Murmur: No - Abdominal Inspection: Normal Distension: No distension Bowel sounds: Normal Tenderness: Nontender Organomegaly: No organomegaly - Back Back: Normal, Nontender - Extremities General upper extremity: Normal inspection, Nontender, Normal color, Normal ROM , Normal temperature General lower extremity: Normal inspection, Nontender, Normal color, Normal ROM , Normal temperature, Normal weight bearing. No: Glenis's sign - Neurological Neuro grossly intact: Yes Cognition: Normal Orientation: AAOx4 Shaka Coma Scale Eye Opening: Spontaneous [place] Coma Scale Verbal: Oriented Shaka Coma Scale Motor: Obeys Commands Shaka Coma Scale Total: 15 Speech: Normal Motor strength normal: LUE, RUE, LLE, RLE Sensory: Normal - Psychological Associated symptoms: Normal affect, Normal mood - Skin Skin Temperature: Warm Skin Moisture: Dry Skin Color: Normal Course - Re-evaluation Re-evalutation: 02/06/18 19:26 After performing a Medical Screening Examination, I estimate there is LOW risk for ACUTE CORONARY SYNDROME, RESPIRATORY FAILURE, SEPSIS OR MENINGITIS, thus I consider the discharge disposition reasonable. I have reevaluated this patient multiple times and no significant life threatening changes are noted. The patient and I have discussed the diagnosis and risks, and we agree with discharging home with close follow-up. We also discussed returning to the Emergency Department immediately if new or worsening symptoms occur. We have discussed the symptoms which are most concerning (e.g., changing or worsening pain, trouble swallowing or breathing, neck stiffness, fever) that necessitate immediate return. - Vital Signs Vital signs: Temp Pulse Resp BP Pulse Ox 98.6 F 78 14 144/82 H 98 02/06/18 19:04 02/06/18 19:04 02/06/18 19:04 02/06/18 19:04 02/06/18 19:04 - Diagnostic Test Radiology reviewed: Image reviewed, Reports reviewed Discharge - Discharge Clinical Impression: URI (upper respiratory infection) Qualifiers: URI type: unspecified URI Qualified Code(s): J06.9 - Acute upper respiratory infection, unspecified HTN (hypertension) Qualifiers: Hypertension type: unspecified Qualified Code(s): I10 - Essential (primary) hypertension Condition: Stable Disposition: HOME, SELF-CARE Additional Instructions: UPPER RESPIRATORY ILLNESS: You have a viral infection of the respiratory passages -- a "cold." This common infection causes nasal congestion, drainage, and often sore throat and cough. It is highly contagious. The disease usually lasts about 10 to 14 days. There is no "cure" for the viral infection -- it must run its course. If there is a complication, such as bacterial infection in the nose, sinuses, middle ear, or bronchial tubes, antibiotics may be required. The antibiotics won't affect the virus. Drink plenty of fluids. A humidifier may help. An expectorant medication or decongestant may make you more comfortable. Use acetaminophen or ibuprofen for fever or aches. See the doctor if fever persists over two days, if there is any significant worsening of your symptoms, or if you simply fail to improve as expected. You were given a 30 day prescription of your blood pressure medicine Benicar with hydrochlorothiazide. You need to follow-up with your primary doctor to get a refill of this prescription please do not run out of the medication. USE OF ACETAMINOPHEN (Tylenol): Acetaminophen may be taken for pain relief or fever control. It's much safer than aspirin, offering a wider range of "safe" dosages. It is safe during . Some brand names are Tylenol, Panadol, Datril, Anacin 3, Tempra, and Liquiprin. Acetaminophen can be repeated every four hours. The following are maximum recommended dosages: >89 pounds or adults 650 mg to 900 mg Acetaminophen can be repeated every four hours. Maximum dose not to exceed 4000 mg a day. FOLLOW-UP CARE: If you have been referred to a physician for follow-up care, call the physician s office for an appointment as you were instructed or within the next two days. If you experience worsening or a significant change in your symptoms, notify the physician immediately or return to the Emergency Department at any time for re-evaluation. Prescriptions: Olmesartan/Hydrochlorothiazide [Benicar Hct 40-25 Mg Tablet] 1 each PO DAILY # 30 tablet Forms: Elevated Blood Pressure Referrals: BEN MARR MD [Primary Care Provider] - Follow up as needed
--- NOTE | 2018-02-06 20:06 | RADIOLOGY REPORT (SQ) ---
EXAM DESCRIPTION: CHEST 2 VIEWS COMPLETED DATE/TIME: 02/06/2018 7:23 pm REASON FOR STUDY: cough congestion for a week COMPARISON: Chest x-ray 06/21/2009. EXAM PARAMETERS: NUMBER OF VIEWS: two views TECHNIQUE: Digital Frontal and Lateral radiographic views of the chest acquired. RADIATION DOSE: NA LIMITATIONS: none FINDINGS: LUNGS AND PLEURA: No consolidation, pneumothorax or pleural effusion. MEDIASTINUM AND HILAR STRUCTURES: No masses or contour abnormalities. HEART AND VASCULAR STRUCTURES: Heart normal size. No evidence for failure. BONES: No acute findings. HARDWARE: None in the chest. IMPRESSION: No acute radiographic finding in the chest. TECHNICAL DOCUMENTATION: JOB ID: [id number] [employer]- All Rights Reserved Reading location - IP/workstation name: [email or web address]
== END 2018-02-06 20:31 | disposition home or self-care (01) ==
LOC: ER 18:37
DX: J06.9 Acute upper respiratory infection, unspecified (principal); R05 Cough; J02.9 Acute pharyngitis, unspecified; R09.82 Postnasal drip; J34.89 Other specified disorders of nose and nasal sinuses; I10 Essential (primary) hypertension; T50.906A Underdosing of unspecified drugs, medicaments and biological substances, initial encounter; Z91.120 Patient's intentional underdosing of medication regimen due to financial hardship; Z91.14 Patient's other noncompliance with medication regimen; Z88.1 Allergy status to other antibiotic agents
CPT/HCPCS: 71046; 99283

== ENCOUNTER 2019-03-01 18:31 | Emergency (ER) | payer BC ==
[2019-03-01] MEDS ORDERED: HYDROCODONE/ACETAMINOPHEN 5-325 MG TABLET PO ONE (18:52)
[2019-03-01] MEDS ORDERED: ONDANSETRON 4 MG TAB.RAPDIS PO ONE (18:52)
--- NOTE | 2019-03-01 18:54 | ER Document Report ---
ED Medical Screen (RME) - General Chief Complaint: Flank Pain Stated Complaint: VOMITING/DIARRHEA/ABDOMINAL PAIN Time Seen by Provider: 03/01/19 18:46 Primary Care Provider: BEN MARR MD [Primary Care Provider] - Follow up as needed Mode of Arrival: Ambulatory Information source: Patient Notes: 58-year-old female presented to ED for left flank and pelvic pain. She states it has been hurting for the last 3 days. She states is been almost constant. She states she last took ibuprofen about 430. She states she has been nauseated and vomiting. She does have a history of kidney stones with lithotripsy. She states last kidney stone was about a year ago. She also has a history of high blood pressure and reflux. Patient states she also has history of appendectomy gallbladder removal, breast biopsy and bilateral tubal ligation. Patient denies smoking drinking or use of any drugs. She does live with her family. Blood urine and CAT scan ordered as well as Odell and Zofran. Patient will reevaluated in the main ED. I have greeted and performed a rapid initial assessment of this patient. A comprehensive ED assessment and evaluation of the patient, analysis of test results and completion of medical decision making process will be conducted by an additional ED providers. Dictation of this chart was performed using voice recognition software; therefore, there may be some unintended grammatical errors. TRAVEL OUTSIDE OF THE [place] IN LAST 30 DAYS: No - Related Data Allergies/Adverse Reactions: sulfamethoxazole [From ] Allergy (Verified 03/01/19 18:32) Hives trimethoprim [From ] Allergy (Verified 03/01/19 18:32) Hives Past Medical History - Past Medical History Cardiac Medical History: Reports: Hx Hypercholesterolemia, Hx Hypertension Denies: Hx Coronary Artery Disease, Hx Heart Attack Pulmonary Medical History: Denies: Hx Asthma, Hx Bronchitis, Hx COPD, Hx Pneumonia Neurological Medical History: Denies: Hx Cerebrovascular Accident, Hx Seizures Renal/ Medical History: Reports: Hx Kidney Stones. Denies: Hx Peritoneal Dialysis GI Medical History: Reports: Hx Gastroesophageal Reflux Disease. Denies: Hx Colonoscopy, Hx Endoscopy Musculoskeltal Medical History: Reports Hx Arthritis - Possible arthritis in knees , Reports Hx Musculoskeletal Deformity, Reports Hx Musculoskeletal Trauma Past Surgical History: Reports: Hx Appendectomy, Hx Breast Surgery - Lump removed, Hx Cholecystectomy, Hx Oral Surgery - [place] teeth removed, Hx Orthopedic Surgery - Knee surgery, Hx Tubal Ligation - Immunizations Hx Diphtheria, Pertussis, Tetanus Vaccination: Yes - Tetanus, unsure when Physical Exam - Vital signs Vitals: Temp Pulse Resp BP Pulse Ox 98.1 F 77 16 163/104 H 97 03/01/19 18:34 03/01/19 18:34 03/01/19 18:34 03/01/19 18:34 03/01/19 18:34 Course - Vital Signs Vital signs: Temp Pulse Resp BP Pulse Ox 98.1 F 77 16 163/104 H 97 03/01/19 18:34 03/01/19 18:34 03/01/19 18:34 03/01/19 18:34 03/01/19 18:34 Doctor's Discharge - Discharge Referrals: BEN MARR MD [Primary Care Provider] - Follow up as needed
[2019-03-01 19:12] LABS: ABSOLUTE BASOPHILS # (AUTO) 0.1 10^3/uL (0.0-0.2); ABSOLUTE EOSINOPHILS # (AUTO) 0.3 10^3/uL (0.0-0.6); ABSOLUTE LYMPHOCYTES (AUTO) 2.7 10^3/uL (0.5-4.7); ABSOLUTE NEUT (AUTO) 5.9 10^3/uL (1.7-8.2); BASOPHILS % (AUTO) 1.1 % (0-2); EOSINOPHILS % (AUTO) 2.9 % (0-6); HEMOGLOBIN 15.9 g/dL (12.0-15.5); LYMPHOCYTES % (AUTO) 27.2 % (13-45); MEAN CORPUSCULAR HEMOGLOBIN 28.5 pg (27.0-33.4); MEAN CORPUSCULAR HGB CONC 33.8 g/dL (32.0-36.0); MEAN CORPUSCULAR VOLUME 84 fl (80-97); PLATELET COUNT 301 10^3/uL (150-450); RED BLOOD COUNT 5.58 10^6/uL (3.72-5.28); RED CELL DISTRIBUTION WIDTH 14.8 % (11.5-14.0); SEGMENTED NEUTROPHILS % (AUTO) 58.8 % (42-78); TOTAL CELLS COUNTED % (AUTO) 100 %
[2019-03-01 19:20] LABS: APPEARANCE,URINE CLEAR; BILIRUBIN,URINE NEGATIVE (NEGATIVE); COLOR,URINE YELLOW; GLUCOSE, URINE NEGATIVE (NEGATIVE); KETONES,URINE NEGATIVE (NEGATIVE); LEUKOCYTE ESTERASE,URINE NEGATIVE (NEGATIVE); NITRITE,URINE NEGATIVE (NEGATIVE); PROTEIN,URINE NEGATIVE (NEGATIVE); URINE SPECIFIC GRAVITY 1.006; UROBILINOGEN,URINE NEGATIVE mg/dL (<2.0)
[2019-03-01 19:29] LABS: ALANINE AMINOTRANSFERASE 32 U/L (9-52); ALBUMIN 4.5 g/dL (3.5-5.0); ALKALINE PHOSPHATASE 144 U/L (38-126); ANION GAP 12 (5-19); ASPARTATE AMINO TRANSFERASE 26 U/L (14-36); BILIRUBIN,DIRECT 0.3 mg/dL (0.0-0.4); BILIRUBIN,TOTAL 0.6 mg/dL (0.2-1.3); BLOOD UREA NITROGEN 22 mg/dL (7-20); CALCIUM 11.4 mg/dL (8.4-10.2); CARBON DIOXIDE 28 mmol/L (22-30); CHLORIDE 101 mmol/L (98-107); GLUCOSE 113 mg/dL (75-110); POTASSIUM 3.9 mmol/L (3.6-5.0); SODIUM 140.8 mmol/L (137-145)
--- NOTE | 2019-03-01 20:22 | RADIOLOGY REPORT (SQ) ---
EXAM DESCRIPTION: [facility]: CT ABDOMEN PELVIS WITHOUT IV CONTRAST CLINICAL HISTORY: 58 years Female; left flank pain with left pelvic pain TECHNIQUE: CT of the abdomen and pelvis without contrast. All CT scans at this facility use dose modulation, iterative reconstruction, and/or weight based dosing when appropriate to reduce radiation dose to as low as reasonably achievable. COMPARISON: 04/15/2017 FINDINGS: Abdomen: Liver:No focal lesions. No intrahepatic ductal distention. Gallbladder: Surgically absent Pancreas:Within normal limits Spleen:Within normal limits Right kidney: At least 8 calculi, largest 6 mm. No hydronephrosis. No ureteral calculi. Left kidney: 3 mm upper pole calculus. Moderate hydronephrosis with calyceal blunting. 7 mm calculus in the mid ureter at the level of the sacrum, with proximal ureteral distention. Adrenal glands:Within normal limits Vascular structures: Minimal aortic calcific plaque. No aneurysm. Pelvis: Small bowel:No significant distention. Appendix: Not reliably identified. Colon:No distention or acute pericolonic edema. No free intraperitoneal fluid or air. Bones: No acute bone findings. Bladder: Unremarkable. No pelvic mass or adenopathy. Fat-containing umbilical hernia is 2.3 cm wide, without acute edema or bowel involvement. Note that evaluation of the bowel and solid organs is somewhat limited due to lack of intravenous and oral contrast. IMPRESSION: 1. 7 mm mid left ureteral calculus with associated moderate left hydronephrosis. 2. Multiple bilateral renal calculi
[2019-03-01] MEDS ORDERED: NORMAL SALINE 1000 ML 1,000 ML IV ONE (21:21)
[2019-03-01] MEDS ORDERED: HYDROMORPHONE HCL INJ/PF 2 MG/ML AMPULE IV ONE ×2 (21:21→22:54)
--- NOTE | 2019-03-01 21:22 | ER Document Report ---
ED GI/ - General Chief Complaint: Flank Pain Stated Complaint: VOMITING/DIARRHEA/ABDOMINAL PAIN Time Seen by Provider: 03/01/19 18:46 Primary Care Provider: BEN MARR MD [Primary Care Provider] - Follow up as needed Mode of Arrival: Ambulatory Notes: Patient is a 58-year-old female that comes to the emergency department for chief complaint of sharp pain in her left abdomen towards the left flank and vomiting. Symptoms have been present for the past 3 days. She denies fever/chills, chest pain, vaginal bleeding or discharge. She states she has a history of kidney stones, this feels similar. She has had lithotripsy and a stent to help pass stones in the past. She does not currently have a urologist. Past medical history also includes appendectomy, cholecystectomy, tubal ligation, hypertension, GERD. TRAVEL OUTSIDE OF THE [place] IN LAST 30 DAYS: No - Related Data Allergies/Adverse Reactions: sulfamethoxazole [From ] Allergy (Verified 03/01/19 18:32) Hives trimethoprim [From ] Allergy (Verified 03/01/19 18:32) Hives Past Medical History - General Information source: Patient - Social History Smoking Status: Never Smoker Frequency of alcohol use: None Drug Abuse: None Lives with: Family Family History: Arthritis, DM, Hypertension, Malignancy. denies: CAD, COPD, CVA, Hyperlipidemia, Thyroid Disfunction Patient has suicidal ideation: No Patient has homicidal ideation: No - Past Medical History Cardiac Medical History: Reports: Hx Hypercholesterolemia, Hx Hypertension Denies: Hx Coronary Artery Disease, Hx Heart Attack Pulmonary Medical History: Denies: Hx Asthma, Hx Bronchitis, Hx COPD, Hx Pneumonia Neurological Medical History: Denies: Hx Cerebrovascular Accident, Hx Seizures Renal/ Medical History: Reports: Hx Kidney Stones. Denies: Hx Peritoneal Dialysis GI Medical History: Reports: Hx Gastroesophageal Reflux Disease. Denies: Hx Colonoscopy, Hx Endoscopy Musculoskeletal Medical History: Reports Hx Arthritis - Possible arthritis in knees , Reports Hx Musculoskeletal Deformity, Reports Hx Musculoskeletal Trauma Past Surgical History: Reports: Hx Appendectomy, Hx Breast Surgery - Lump removed, Hx Cholecystectomy, Hx Oral Surgery - [place] teeth removed, Hx Orthopedic Surgery - Knee surgery, Hx Tubal Ligation - Immunizations Hx Diphtheria, Pertussis, Tetanus Vaccination: Yes - Tetanus, unsure when Review of Systems - Review of Systems Constitutional: No symptoms reported EENT: No symptoms reported Cardiovascular: No symptoms reported Respiratory: No symptoms reported Gastrointestinal: See HPI Genitourinary: See HPI Female Genitourinary: No symptoms reported Musculoskeletal: No symptoms reported Skin: No symptoms reported Hematologic/Lymphatic: No symptoms reported Neurological/Psychological: No symptoms reported Physical Exam - Vital signs Vitals: Temp Pulse Resp BP Pulse Ox 98.1 F 77 16 163/104 H 97 03/01/19 18:34 03/01/19 18:34 03/01/19 18:34 03/01/19 18:34 03/01/19 18:34 - Notes Notes: GENERAL: Patient is mildly uncomfortable but is in no distress HEAD: Normocephalic, atraumatic. EYES: Pupils equal, round, and reactive to light. Extraocular movements intact. ENT: Oral mucosa moist, tongue midline. Oropharynx unremarkable. Airway patent. Nares patent, no nasal septal hematoma, TM's intact. NECK: Full range of motion. Supple. Trachea midline. LUNGS: Clear to auscultation bilaterally, no wheezes, rales, or rhonchi. No respiratory distress. HEART: Regular rate and rhythm. No murmur ABDOMEN: There is some left mid to lower quadrant tenderness without guarding, remaining abdomen is benign. GENITOURINARY: Deferred EXTREMITIES: Moves all 4 extremities spontaneously. No edema, normal radial and dorsalis pedis pulses bilaterally. No cyanosis. BACK: no cervical, thoracic, lumbar midline tenderness. No saddle anesthesia, normal distal neurovascular exam. Moves all extremities in full range of motion. No specific CVA tenderness noted. NEUROLOGICAL: Alert and oriented x3. Normal speech. Cranial nerves II through XII grossly intact. PSYCH: Normal affect, normal mood. SKIN: Warm, dry, normal turgor. No rashes or lesions noted. Course - Re-evaluation Re-evalutation: Patient is actually quite well-appearing. She does have left lower abdominal tenderness, no CVA tenderness, unremarkable vital signs except for hypertension. She is not vomiting. She is tolerating p.o. here without difficulty. CBC shows elevated hemoglobin but no leukocytosis, chemistry shows elevated BUN and general dry shift without elevated creatinine. Urinalysis shows no infection. Patient has been given IV fluids, pain medication, nausea medication . CT shows left-sided 7 mm ureterolithiasis with some hydronephrosis and hydroureter. There is no infection in the urine. Multiple nephrolithiasis in addition to this. No other acute findings. I discussed details with patient. Patient states she feels much improved, is ready to go home. She will be provided with medication, urology referral, given strict return precautions. She states understanding and agreement. - Vital Signs Vital signs: Temp Pulse Resp BP Pulse Ox 97.8 F 61 18 152/84 H 98 03/01/19 23:43 03/01/19 23:43 03/01/19 23:43 03/01/19 23:43 03/01/19 23:43 - Laboratory Result Diagrams: 03/01/19 19:00 03/01/19 19:00 Laboratory results interpreted by me: 03/01/19 03/01/19 03/01/19 19:00 19:00 19:00 RBC 5.58 H Hgb 15.9 H RDW 14.8 H BUN 22 H Est GFR ( Amer) 53 L Est GFR (Non-Af Amer) 44 L Glucose 113 H Calcium 11.4 H Alkaline Phosphatase 144 H Urine Blood LARGE H Discharge - Discharge Clinical Impression: Flank pain Abdominal pain Qualifiers: Abdominal location: left lower quadrant Qualified Code(s): R10.32 - Left lower quadrant pain Vomiting Qualifiers: Vomiting type: unspecified Vomiting Intractability: non-intractable Nausea p resence: with nausea Qualified Code(s): R11.2 - Nausea with vomiting, unspecified Condition: Stable Disposition: HOME, SELF-CARE Additional Instructions: Imaging shows that you are passing a 7 mm kidney stone on the left side. You also have multiple kidney stones in your kidneys which are not passing at this time. Take the Flomax to help pass the stone, take the pain medication if needed, take the nausea medication if needed, drink plenty of fluids. Follow-up closely with the urology referral, call tomorrow to set this up for additional management. Return if you worsen in any way including fever, vomiting, severe worsening pain, or any other concerning symptoms. [facility] [address] [place], [place] [id number] [facility] [address] [place], [place] [id number] Mitzy Johnson MD Doctor in [place], [place] Address: [address], [place] [address] Prescriptions: Ondansetron [Zofran Odt 4 mg Tablet] 1 - 2 tab PO Q4H PRN #20 tab.rapdis PRN Reason: For Nausea/Vomiting Oxycodone HCl/Acetaminophen [Percocet 5-325 mg Tablet] 1 - 2 tab PO Q6H PRN #20 tablet PRN Reason: Tamsulosin HCl [Flomax 0.4 mg Cap.sr] 0.4 mg PO DAILY #7 cap.sr.24h Forms: Return to Work Referrals: BEN MARR MD [Primary Care Provider] - Follow up as needed
[2019-03-01] MEDS ORDERED: ONDANSETRON HCL INJ/PF 4 MG/2 ML SDV IV ONE (22:54)
[2019-03-01] MEDS ORDERED: ONDANSETRON HCL INJ/PF 4 MG/2 ML SDV ONE (22:58)
[2019-03-01] MEDS ORDERED: HYDROCODONE/ACETAMINOPHEN 5-325 MG (6 TAB/ER DISP) PO PRN (23:31)
[2019-03-01] MEDS ORDERED: ONDANSETRON ODT 4 MG TAB (6 TAB/ER DISP) PO PRN (23:31)
[2019-03-01 23:46] VITALS: BP 152/84
== END 2019-03-01 23:47 | disposition home or self-care (01) ==
LOC: ER 18:31
DX: R10.32 Left lower quadrant pain (principal); R11.2 Nausea with vomiting, unspecified; R19.7 Diarrhea, unspecified; I10 Essential (primary) hypertension; E78.00 Pure hypercholesterolemia, unspecified; K21.9 Gastro-esophageal reflux disease without esophagitis; Z88.3 Allergy status to other anti-infective agents; Z90.49 Acquired absence of other specified parts of digestive tract; Z98.51 Tubal ligation status; Z87.442 Personal history of urinary calculi
CPT/HCPCS: 99284; 96361; 96374; 96375; 36415; 85025; 80053; 81001; 74176; S0119; J1170; J2405; J7030

== ENCOUNTER → 2020-02-07 | Outpatient (CLI) | payer BC ==
[2020-02-07 10:55] VITALS: BP 138/72
--- NOTE | 2020-02-07 10:55 | ER [facility] ASSESSMENT REPORT ---
Intake - In the Last 14 days Have you traveled outside [place]?: No Have you been in close contact with someone CONFIRMED: No Worked in Healthcare?: No - Symptoms Subjective Fever([place] feverish): Yes Chills: Yes Muscule Aches: Yes Runny Nose: Yes Sore Throat: Yes Cough (New or worsening chronic cough): Yes Shortness of breath: No Nausea or Vomiting: Yes Headache: Yes Abdominal Pain: Yes Diarrhea(3 or more loose stools in last 24 hours): Yes - Do you have any of the following Chronic lung disease: Asthma or emphysema or COPD: No Cystic Fibrosis: No Diabetes: No High Blood Pressure: Yes Cardiovascular Disease: No Chronic Kidney Disease: No Chronic Liver Disease: No Chronic blood disorder like Sickle Cell Disease: No Weak immune system due to disease or medication: No Neurologic condition that limits movement: No Developmental delay - Moderate to Severe: No Recent (within past 2 weeks) or current : No Morbid Obesity (>100 pounds over ideal weight): Yes - Objective Temperature: 97.4 F Pulse Rate: 77 Respiratory Rate: 18 Blood Pressure: 138/72 O2 Sat by Pulse Oximetry: 95 Objective: Given above, testing performed: If Testing Performed: Test Specimen Type Sent to General - General Information source: Patient Notes: Patient presents to the [facility] for screening for the coronavirus. Patient reports having symptoms for the past 4 days. Patient has had a fever of 101.4 with chills body aches congestion and sore throat. Patient also had a cough. Patient's had some nausea and headache as well. Patient does have an underlying history of high blood pressure and acid reflux. - Related Data Allergies/Adverse Reactions: sulfamethoxazole [From Septra] Allergy (Verified 03/01/19 18:32) Hives trimethoprim [From Septra] Allergy (Verified 03/01/19 18:32) Hives Past Medical History - General Information source: Patient - Social History Smoking Status: Never Smoker Family History: Arthritis, DM, Hypertension, Malignancy. denies: CAD, COPD, CVA, Hyperlipidemia, Thyroid Disfunction - Past Medical History Cardiac Medical History: Reports: Hx Hypercholesterolemia, Hx Hypertension Denies: Hx Coronary Artery Disease, Hx Heart Attack Pulmonary Medical History: Denies: Hx Asthma, Hx Bronchitis, Hx COPD, Hx Pneumonia Neurological Medical History: Denies: Hx Cerebrovascular Accident, Hx Seizures Renal/ Medical History: Reports: Hx Kidney Stones. Denies: Hx Peritoneal Dialysis GI Medical History: Reports: Hx Gastroesophageal Reflux Disease. Denies: Hx Colonoscopy, Hx Endoscopy Musculoskeletal Medical History: Reports Hx Arthritis - Possible arthritis in knees , Reports Hx Musculoskeletal Deformity, Reports Hx Musculoskeletal Trauma Past Surgical History: Reports: Hx Appendectomy, Hx Breast Surgery - Lump removed, Hx Cholecystectomy, Hx Oral Surgery - [place] teeth removed, Hx Orthopedic Surgery - Knee surgery, Hx Tubal Ligation Physical Exam - Notes Notes: Full physical exam could not be performed due to covid 19 isolation protocols. Constitutional: Nontoxic appearance, no acute distress Eyes: Nonicteric, extraocular movements intact, sclera clear ENT: No erythema, no tonsillar hypertrophy, no potential airway compromise Cardiovascular: Heart rate and rhythm regular, no JVD Respiratory: Sounds clear bilaterally, nonlabored breathing, no use of accessory muscles, no tachypnea Gastrointestinal: Abdomen not distended Muculoskeletal: Moves all extremities well Skin: Normal color Neuro: Awake alert oriented, normal speech Psych: Normal mood and affect Diagnostic Results Laboratory Results: The patient was evaluated during the global Covid 19 pandemic, and that diagnosis was suspected/considered upon their initial presentation. Their evaluation, treatment and testing was consistent with current guidelines for patients who present with complaints or symptoms that may be related to Covid 19. Patient presents with upper respiratory symptoms worrisome for possible Covid 19. Patient does not have emergency worrying symptoms such as difficulty breathing, shortness of breath, chest pain, pressure, confusion or cyanosis. Patient appears suitable for discharge as vital signs are stable and patient is nontoxic in appearance. Good return precautions have been discussed with patient, patient verbalized understanding and is agreeable with discharge plan of care at this time. Patient Education/Counseling Counseling/Education: Patient was provided with discharge information including: As a person under investigation for Covid 19, the [place] department of Health and Human Services, division of public health advises you to adhere to the following guidance until your test results are reported to you. If your test result is positive, you will receive additional information from your provider and your local health department at that time. Remain at home until you are cleared by the health provider or public health authorities. Keep a log of visitors to your home, notify any visitors to your home of your isolation status. If you plan to move to a new address or leave the county, notify the local health department in your County. Call your doctor or seek care if you have an urgent medical need. Before seeking medical care, call ahead to get instructions from the provider before arriving at the medical office clinic or hospital. Notify them that you are being tested for the virus that causes Covid 19 so that arrangements can be made , as necessary, to prevent transmission to others in the healthcare setting. Next, notify the local health department in your county. If a medical emergency arises and you need to call 911, inform the first responders that you are being tested for the virus that causes Covid 19. Next, notify the local health department in your county. [facility] Discharge - Discharge Clinical Impression: COVID-19 screening Condition: Stable Disposition: Home; Selfcare
[2020-02-07 13:17] LABS: A TYPE INFLUENZA AG NEGATIVE (NEGATIVE); B INFLUENZA AG NEGATIVE (NEGATIVE)
== END ==
LOC: RDC 10:26
PROVIDERS: ATTEND Nurse Practitioner Family
DX: Z20.828 Contact with and (suspected) exposure to other viral communicable diseases (principal); R50.9 Fever, unspecified; M79.10 Myalgia, unspecified site; R09.89 Other specified symptoms and signs involving the circulatory and respiratory systems; J02.9 Acute pharyngitis, unspecified; R05 Cough; R11.0 Nausea; R51 Headache; R10.9 Unspecified abdominal pain; R19.7 Diarrhea, unspecified; I10 Essential (primary) hypertension; E78.00 Pure hypercholesterolemia, unspecified; E66.01 Morbid (severe) obesity due to excess calories; K21.9 Gastro-esophageal reflux disease without esophagitis; Z88.2 Allergy status to sulfonamides; Z88.3 Allergy status to other anti-infective agents
CPT/HCPCS: 87070; 87635; 87804; 87880; 99211

== ENCOUNTER → 2020-04-21 | Outpatient (CLI) | payer BC ==
--- NOTE | 2020-04-21 14:49 | ER [facility] ASSESSMENT REPORT ---
Intake - In the Last 14 days Have you traveled outside [place]?: No Have you been in close contact with someone CONFIRMED: Yes Worked in Healthcare?: No - Symptoms Subjective Fever([place] feverish): Yes Chills: No Muscule Aches: Yes Runny Nose: No Sore Throat: Yes Cough (New or worsening chronic cough): Yes Shortness of breath: Yes Nausea or Vomiting: Yes Headache: Yes Abdominal Pain: Yes Diarrhea(3 or more loose stools in last 24 hours): Yes - Do you have any of the following Chronic lung disease: Asthma or emphysema or COPD: No Cystic Fibrosis: No Diabetes: No High Blood Pressure: Yes Cardiovascular Disease: Yes Chronic Kidney Disease: No Chronic Liver Disease: No Chronic blood disorder like Sickle Cell Disease: No Weak immune system due to disease or medication: No Neurologic condition that limits movement: No Developmental delay - Moderate to Severe: No Recent (within past 2 weeks) or current : No Morbid Obesity (>100 pounds over ideal weight): No - Objective Temperature: 98.8 F Pulse Rate: 82 Respiratory Rate: 16 Blood Pressure: 136/65 O2 Sat by Pulse Oximetry: 95 Objective: Given above, testing performed: flu, strep, covid Disposition: Home; Selfcare General - General Chief Complaint: Flu Symptoms Time Seen by Provider: 04/21/20 14:35 Mode of Arrival: Ambulatory Information source: Patient - HPI Notes: 39-year-old female presents to [facility] clinic for COVID-19 testing. She does report community contact with another person that has tested positive for COVID-19. Patient reports onset of symptoms 04/18/2020. She is complaining of mild to moderate fever, muscle aches, sore throat, cough, shortness of breath with exertion, nausea, headache, abdominal pain and diarrhea. She denies any chills or rhinorrhea. Medical history is significant for hypertension. - Related Data Allergies/Adverse Reactions: sulfamethoxazole [From Septra] Allergy (Verified 03/01/19 18:32) Hives trimethoprim [From Septra] Allergy (Verified 03/01/19 18:32) Hives Past Medical History - General Information source: Patient - Social History Smoking Status: Never Smoker Family History: Arthritis, DM, Hypertension, Malignancy. denies: CAD, COPD, CVA, Hyperlipidemia, Thyroid Disfunction - Past Medical History Cardiac Medical History: Reports: Hx Hypercholesterolemia, Hx Hypertension Denies: Hx Coronary Artery Disease, Hx Heart Attack Pulmonary Medical History: Reports: None Denies: Hx Asthma, Hx Bronchitis, Hx COPD, Hx Pneumonia EENT Medical History: Reports: None Neurological Medical History: Reports: None. Denies: Hx Cerebrovascular Accident, Hx Seizures Endocrine Medical History: Reports: None Renal/ Medical History: Reports: Hx Kidney Stones. Denies: Hx Peritoneal Dialysis Malignancy Medical History: Reports: None GI Medical History: Reports: Hx Gastroesophageal Reflux Disease. Denies: Hx Colonoscopy, Hx Endoscopy Musculoskeletal Medical History: Reports Hx Arthritis - Possible arthritis in knees , Reports Hx Musculoskeletal Deformity, Reports Hx Musculoskeletal Trauma Skin Medical History: Reports None Psychiatric Medical History: Reports: None Traumatic Medical History: Reports: None Infectious Medical History: Reports: None Past Surgical History: Reports: Hx Appendectomy, Hx Breast Surgery - Lump removed, Hx Cholecystectomy, Hx Oral Surgery - [place] teeth removed, Hx Orthopedic Surgery - Knee surgery, Hx Tubal Ligation Physical Exam - General General appearance: Appears well, Alert In distress: None Notes: PHYSICAL EXAMINATION: GENERAL: Well-appearing and in no acute distress. HEAD: Atraumatic, normocephalic. EYES: sclera anicteric, conjunctiva are normal. ENT: nares patent. Moist mucous membranes. NECK: Normal range of motion, supple without lymphadenopathy. LUNGS: No increased work of breathing. Lung sounds CTAB and equal. No wheezes rales or rhonchi. HEART: Regular rate and rhythm without murmurs. ABDOMEN: Soft, nontender, normal bowel sounds, no guarding. EXTREMITIES: Normal range of motion, no pitting edema. No cyanosis. NEUROLOGICAL: A&O x 3. Normal speech. PSYCH: Normal mood, normal affect. SKIN: Warm, Dry, normal turgor, no rashes or lesions noted Diagnostic Results Laboratory Results: Flu and strep pending, COVID pending [facility] Discharge - Discharge Clinical Impression: Encounter for screening laboratory testing for COVID-19 virus Upper respiratory infection Qualifiers: URI type: unspecified URI Qualified Code(s): J06.9 - Acute upper respiratory infection, unspecified Condition: Good Disposition: Home; Selfcare
[2020-04-21 14:54] VITALS: BP 136/65
[2020-04-21 15:55] LABS: A TYPE INFLUENZA AG NEGATIVE (NEGATIVE)
[2020-04-21 15:56] LABS: B INFLUENZA AG NEGATIVE (NEGATIVE)
== END ==
LOC: RDC 13:53
PROVIDERS: ATTEND Registered Nurse
DX: Z20.828 Contact with and (suspected) exposure to other viral communicable diseases (principal); J06.9 Acute upper respiratory infection, unspecified; R50.9 Fever, unspecified; R05 Cough; R06.02 Shortness of breath; J02.9 Acute pharyngitis, unspecified; M79.10 Myalgia, unspecified site; R11.0 Nausea; R10.9 Unspecified abdominal pain; R19.7 Diarrhea, unspecified; I10 Essential (primary) hypertension; I25.10 Atherosclerotic heart disease of native coronary artery without angina pectoris; K21.9 Gastro-esophageal reflux disease without esophagitis; E78.00 Pure hypercholesterolemia, unspecified; M13.80 Other specified arthritis, unspecified site; Z88.1 Allergy status to other antibiotic agents; Z88.2 Allergy status to sulfonamides
CPT/HCPCS: 87070; 87880; 87635; 87804; C9803; 99201; 99211

== ENCOUNTER 2020-07-30 15:28 | Emergency (ER) | payer BC ==
--- NOTE | 2020-07-30 17:01 | ER Document Report ---
HPI - HPI Patient complains to provider of: Right foot pain Time Seen by Provider: 07/30/20 16:51 Onset: Other - 3 days Onset/Duration: Persistent Quality of pain: Achy Pain Level: 3 Context: Patient states that she recently started work a week ago. 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 Patient states she has had right heel pain although denies any specific injury. Associated Symptoms: Other - Foot pain. denies: Fever Exacerbated by: Standing, Movement, Walking Relieved by: Denies Similar symptoms previously: No Recently seen / treated by doctor: No - ROS ROS below otherwise negative: Yes Systems Reviewed and Negative: Yes All other systems reviewed and negative - CONSTITUTIONAL Constitutional: DENIES: Fever - NEURO Neurology: DENIES: Weakness - GASTROINTESTINAL Gastrointestinal: DENIES: Nausea, Patient vomiting - REPRODUCTIVE Reproductive: DENIES: : - MUSCULOSKELETAL Musculoskeletal: REPORTS: Extremity pain - DERM Skin Color: Normal Skin Problems: None Past Medical History - General Information source: Patient - Social History Smoking Status: Never Smoker Frequency of alcohol use: None Drug Abuse: None Occupation: [employer] Family History: Arthritis, DM, Hypertension, Malignancy. denies: CAD, COPD, CVA, Hyperlipidemia, Thyroid Disfunction - Past Medical History Cardiac Medical History: Reports: Hx Hypercholesterolemia, Hx Hypertension Neurological Medical History: Denies: Hx Cerebrovascular Accident, Hx Seizures Renal/ Medical History: Reports: Hx Kidney Stones. Denies: Hx Peritoneal Dialysis GI Medical History: Reports: Hx Gastroesophageal Reflux Disease. Denies: Hx Colonoscopy, Hx Endoscopy Musculoskeletal Medical History: Reports Hx Arthritis - Possible arthritis in knees , Reports Hx Musculoskeletal Deformity, Reports Hx Musculoskeletal Trauma Past Surgical History: Reports: Hx Appendectomy, Hx Breast Surgery - Lump removed, Hx Cholecystectomy, Hx Oral Surgery - [place] teeth removed, Hx Orthopedic Surgery - Knee surgery, Hx Tubal Ligation - Immunizations Hx Diphtheria, Pertussis, Tetanus Vaccination: Yes - Tetanus, unsure when Vertical Provider Document - CONSTITUTIONAL Agree With Documented VS: Yes Exam Limitations: No Limitations General Appearance: WD/WN, No Apparent Distress - INFECTION CONTROL TRAVEL OUTSIDE OF THE [place] IN LAST 30 DAYS: No - HEENT HEENT: Atraumatic, Normocephalic - NECK Neck: Normal Inspection - RESPIRATORY Respiratory: No Respiratory Distress - CARDIOVASCULAR Pulses: Normal: Dorsalis pedis - MUSCULOSKELETAL/EXTREMETIES Musculoskeletal/Extremeties: MAEW, Tender - Tenderness to plantar surface of right calcaneus, normal skin color and temperature, no skin defect appreciated, No Edema. negative: Eccymosis - NEURO Level of Consciousness: Awake, Alert, Appropriate Motor/Sensory: No Motor Deficit - DERM Integumentary: Warm, Dry Course - Re-evaluation Re-evalutation: 07/30/20 Patient with tenderness to the plantar surface of her right calcaneus, patient does have large heel spurs to the right foot. Patient advised of these findings and encouraged to wear good supportive shoes. Discussed stretching exercises. Patient encouraged to follow-up with podiatry orthopedics for any persistent pain or problems. - Diagnostic Test Radiology reviewed: Image reviewed, Reports reviewed Discharge - Discharge Clinical Impression: Right foot pain Heel spur Qualifiers: Laterality: right Qualified Code(s): M77.31 - Calcaneal spur, right foot Condition: Stable Disposition: HOME, SELF-CARE Instructions: Plantar Fasciitis or Heel Spur ([facility]) Additional Instructions: Return immediately for any new or worsening symptoms Followup with your primary care provider, call tomorrow to make a followup appointment Your x-ray shows a heel spur, follow-up with orthopedics or podiatry for further evaluation. Wear good supportive shoes Prescriptions: Naproxen [Naprosyn 250 Nmg Tablet] 1 tab PO BID #14 tablet Forms: Return to Work Referrals: BEN MARR MD [Primary Care Provider] - Follow up as needed [facility] [Provider Group] - Follow up as needed DANIELE TORREZ DPM [ACTIVE STAFF] - Follow up as needed
--- NOTE | 2020-07-30 18:04 | RADIOLOGY REPORT (SQ) ---
EXAM DESCRIPTION: FOOT RIGHT COMPLETE IMAGES COMPLETED DATE/TIME: 07/30/2020 5:43 pm REASON FOR STUDY: r foot/heel pain COMPARISON: None. NUMBER OF VIEWS: Three views. TECHNIQUE: AP, lateral and oblique radiographic images acquired of the right foot. LIMITATIONS: None. FINDINGS: MINERALIZATION: Normal. BONES: No acute fracture or dislocation. No worrisome bone lesions. JOINTS: No effusions. SOFT TISSUES: No soft tissue swelling. No foreign body. OTHER: Prominent calcaneal spurs at the insertion site of the Achilles tendon and plantar aponeurosis . IMPRESSION: Prominent calcaneal spurs as described. No acute fracture or dislocation. TECHNICAL DOCUMENTATION: JOB ID: [id number] 2010 [employer]- All Rights Reserved Reading location - IP/workstation name: [email or web address]
[2020-07-31 00:08] VITALS: BP 167/89
== END 2020-07-30 18:29 | disposition home or self-care (01) ==
LOC: ER 15:28
DX: M79.671 Pain in right foot (principal); M77.31 Calcaneal spur, right foot; E78.00 Pure hypercholesterolemia, unspecified; I10 Essential (primary) hypertension; Z87.442 Personal history of urinary calculi
CPT/HCPCS: 99283